=== PATIENT | male | born 1985 | race Caucasian/White ===

== ENCOUNTER 2018-05-22 10:30 | Outpatient (CLI) | payer OTHER | END 2018-05-22 10:37 | disposition home or self-care (01) | LOC: LAB 10:30 | DX: N39.0 Urinary tract infection, site not specified (principal); E78.49 Other hyperlipidemia ==

== ENCOUNTER 2024-07-16 08:47 | Emergency (ER) | payer OTHER ==
[~2024-07-16] VITALS: Ht 185.4 cm; Wt 98.4 kg
[2024-07-16] MEDS ORDERED: TIROSINT13 MCG (09:20)
[2024-07-16] MEDS ORDERED: EZETIMIBE10 MG PO (09:20)
[2024-07-16] MEDS ORDERED: KETOROLAC TROMETHAMINE 30 MG VIAL IV ONE (09:45)
[2024-07-16] MEDS ORDERED: 0.9 % SODIUM CHLORIDE 1,000 ML IV SCH (09:45)
[2024-07-16] MEDS ORDERED: CEFTRIAXONE SODIUM 1,000 MG VIAL IV ONE (09:45)
[2024-07-16] MEDS ORDERED: KETOROLAC TROMETHAMINE 30 MG VIAL ONE (09:55)
[2024-07-16] MEDS ORDERED: CEFTRIAXONE SODIUM 1,000 MG VIAL ONE (09:55)
[2024-07-16 10:15] LABS: HEMATOCRIT 47.8 % (39.0-48.0); HEMOGLOBIN 16.2 g/dL (13-16.00); MEAN CELL VOLUME 85.4 fL (80.0-100.00); MEAN CORPUSCULAR HEMOGLOBIN 28.9 pg (27.00-32.0); MEAN CORPUSCULAR HGB CONC 33.8 g/dl (32.0-36.0); PLATELET COUNT 238 K/uL (150-450); RED CELL DISTRIBUTION WIDTH 13.4 % (11.5-14.5)
[2024-07-16 10:55] LABS: ALBUMIN 4.4 gm/dL (3.4-5.0); BILIRUBIN TOTAL 0.69 mg/dL (0.3-1.2); CALCIUM 9.5 mg/dL (8.5-10.1); CREATININE SERUM 0.97 mg/dL (0.70-1.30); GFR 86.62; GLOBULINA 3.7 G/DL (2.4-3.5); POTASSIUM 4.57 mEq/L (3.5-5.1); PROSTATIC SPECIFIC ANTIGEN 0.952 NG/ML (0.010-4.00); TOTAL PROTEIN 8.1 gm/dL (6.4-8.2)
[2024-07-16] MEDS ORDERED: TAMSULOSIN HCL 0.4 MG CAP PO ONE ×2 (10:58→11:00)
[2024-07-16 11:00] LABS: URINE APPEARANCE Turbid; URINE BILIRRUBIN Small (NEGATIVE); URINE BLOOD Large; URINE COLOR Red; URINE GLUCOSE Negative (NEGATIVE); URINE KETONE Negative (NEGATIVE); URINE LEUKOCYTE Moderate; URINE NITRATE Positive; URINE UROBILINOGEN 0.2 E.U./dl
[2024-07-16 11:04] LABS: URINE BACTERIA 598.5 uL (0.0-1933); URINE EPITHELIAL CELLS 5.5 uL (0.0-38.8); URINE WBC 88.9 uL (0.0-23.2)
[2024-07-16] MEDS ORDERED: DUI500 PO (11:06)
[2024-07-16] MEDS ORDERED: TAMS0.4C PO (11:06)
[2024-07-16] MEDS ORDERED: KETO10TA2 PO (11:06)
[2024-07-16 11:16] LABS: URINE PROTEIN 100 (NEGATIVE); URINE RBC > 10558.9 uL (0.0-20.8)
== END 2024-07-16 11:23 | disposition home or self-care (01) ==
LOC: ER 08:49
PROVIDERS: General Practice
DX: N20.1 Calculus of ureter (principal); R31.9 Hematuria, unspecified; Z87.442 Personal history of urinary calculi; N39.0 Urinary tract infection, site not specified